=== PATIENT | female | born 1985 | race Caucasian/White ===

== ENCOUNTER 2018-09-04 22:26 | Emergency (ER) | payer OTHER ==
[2018-09-04] MEDS: 0.9 % SODIUM CHLORIDE 1,000 ML IV ONE (22:50)
[2018-09-04] MEDS: ONDANSETRON HCL/PF 4 MG/ 2ML VIAL IVP ONE (22:55)
[2018-09-04] MEDS: KETOROLAC TROMETHAMINE 30 MG/1ML VIAL IVP ONE (22:55)
--- NOTE | 2018-09-04 23:25 | ED Physician Documentation ---
General Adult - HISTORIAN Historian: patient - HPI Stated Complaint: Migraine Chief Complaint: General Adult Onset: hours (3) Timing: still present Severity: moderate Further Comments: yes (Pt is a 33 yo female with c/o migraine headache.) - ROS CONST: other (malaise) EYES/ENT: other (photophobia) CVS/RESP: none GI/: vomiting, nausea MS/SKIN/LYMPH: none NEURO/PSYCH: headache - PAST HX Past History: other (migraine) Surgeries/Procedures: other (tonsillectomy) Allergies/Adverse Reactions: Allergies Allergy/AdvReac Type Severity Reaction Status Date / Time No Known Allergies Allergy Verified 09/04/18 22:41 Home Medications: Ambulatory Orders Medication Instructions Recorded NK 09/04/18 - SOCIAL HX Smoking History: cigarettes - FAMILY HX Family History: No - VITAL SIGNS Vital Signs: Vital Signs Temp Pulse Resp BP Pulse Ox 97.2 F L 101 H 15 130/82 100 09/04/18 22:35 09/04/18 22:35 09/04/18 22:35 09/04/18 22:35 09/04/18 22:35 - REVIEWED ASSESSMENTS Nursing Assessment Reviewed: Yes Vitals Reviewed: Yes Progress - Progress Progress: NS 1 L IVF Toradol 30 mg IV Zofran 4 mg IV Sx improved/resolved. ED Results Lab/Radiology - Orders Orders: ED Orders Category Date Time Status Place IV Lock 1T Care 09/04/18 22:42 Active 0.9 % Sodium Chloride [Normal Saline] 1,000 ml Med 09/04/18 22:42 Active IV Q1H Ketorolac Tromethamine [Toradol] Med 09/04/18 22:43 Discontinued 30 mg IVP NOW ONE Ondansetron HCl/Pf [Zofran 4 mg/2 ml] Med 09/04/18 22:42 Discontinued 4 mg IVP NOW ONE General Adult Physical Exam - PHYSICAL EXAM GENERAL APPEARANCE: moderate distress EENT: eye inspection normal, pharynx normal NECK: normal inspection, supple RESPIRATORY: no resp distress, chest non-tender, breath sounds normal CVS: reg rate & rhythm, heart sounds normal BACK: normal inspection SKIN: warm/dry, normal color EXTREMITIES: non-tender, normal range of motion, no evidence of injury, no edema NEURO: oriented X3, CN's nml as tested, motor nml, sensation nml Discharge Clincal Impression: migraine Referrals: Primary Doctor,No [Primary Care Provider] - Condition: Good Disposition: 01 HOME, SELF-CARE Decision to Admit: NO Decision Time: 23:31
[2018-09-04 23:38] VITALS: BP 128/72
== END 2018-09-04 23:35 | disposition home or self-care (01) ==
LOC: ED 22:26
DX: G43.909 Migraine, unspecified, not intractable, without status migrainosus (principal)
CPT/HCPCS: J1885; J2405; J7030; 96365; 96375; 99284; S1016

== ENCOUNTER 2019-07-16 22:19 | Emergency (ER) | payer OTHER ==
[2019-07-16 22:32] VITALS: BP 130/77
--- NOTE | 2019-07-16 22:33 | ED Physician Documentation ---
Sore Throat/Dental Pain - HISTORIAN Historian: patient - HPI Stated Complaint: dental pain Chief Complaint: Dental Pain Additional Information: Patient presents to ED with a 2 day history of left lower dental pain. Patient reports the filling fell out 2 days ago. Onset: days ago (2) Context: Fractured Tooth Associated Symptoms: denies: fever, chills, sore throat Worsened By: heat, cold - ROS CONST: no problems CVS/RESP: denies: chest pain, shortness of breath GI/: denies: nausea, vomiting MS/SKIN/LYMPH: denies: muscle aches NEURO/PSYCH: denies: headache - PAST HX Past History: none Other History: none Allergies/Adverse Reactions: Allergies Allergy/AdvReac Type Severity Reaction Status Date / Time No Known Allergies Allergy Verified 07/16/19 22:32 Home Medications: Ambulatory Orders Medication Instructions Recorded Penicillin V Potassium [Pen V K] 500 mg PO TID #30 tablet 07/16/19 Tramadol HCl [Ultram] 50 mg PO QID PRN #15 tablet 07/16/19 - SOCIAL HX Smoking History: non-smoker Alcohol Use: none Drug Use: none - FAMILY HX Family History: No - VITAL SIGNS Vital Signs: Vital Signs Temp Pulse Resp BP Pulse Ox 128/72 09/04/18 23:35 - REVIEWED ASSESSMENTS Nursing Assessment Reviewed: Yes Vitals Reviewed: Yes Dental Pain Physical Exam - EXAM General Appearance: no acute distress, alert Head/Neck: no lymphadenopathy Eyes: PERRL Mouth/Throat: gums nml, dental tenderness (left lower) Ear/Nose: nml inspection Respiratory: no resp. distress, breath sounds nml CVS: reg. rate & rhythm, heart sounds nml Abdomen: soft, normal bowel sounds Extremities: non-tender Skin: warm/dry Neuro/Psych: none Discharge Clincal Impression: Pain, dental Prescriptions: Penicillin V Potassium [Pen V K] 500 mg PO TID #30 tablet Tramadol HCl [Ultram] 50 mg PO QID PRN #15 tablet PRN Reason: dental pain Referrals: Primary Doctor,No [Primary Care Provider] - 2 Days Additional Instructions: 1. Take antibiotics until gone 2. Tramadol as needed for pain. You may add tylenol and/or Ibuprofen as needed to Tramadol for better pain control 3. Mouth rinses after each meal or snack. 1 tsp salt and 1 tsp baking soda in 4 ounces warm water 4. Follow up with Dentist as soon as possible 5. Return to ER for new or worsening symptoms Condition: Stable Disposition: 01 HOME, SELF-CARE Decision to Admit: NO Date of Decison to Admit: 07/16/19 Decision Time: 22:43
[2019-07-16] MEDS: traMADol HCL 50 MG TABLET PO ONE (22:45)
[2019-07-16] MEDS: AMOXICILLIN/POT 875/125 1 EACH PO ONE (22:45)
== END 2019-07-16 22:50 | disposition home or self-care (01) ==
LOC: ED 22:19
DX: K08.9 Disorder of teeth and supporting structures, unspecified (principal)
CPT/HCPCS: 99283; 99284